=== PATIENT | female | born 2005 ===

== ENCOUNTER 2023-12-17 17:27 | Emergency (ER) | payer SELFPAY | END 2023-12-17 18:55 | disposition home or self-care (01) | LOC: DL.ED 17:27 | DX: S92.512A Displaced fracture of proximal phalanx of left lesser toe(s), initial encounter for closed fracture (principal); W20.8XXA Other cause of strike by thrown, projected or falling object, initial encounter | CPT/HCPCS: 73620-LT; 73660-T3; 99282; 99283 ==

== ENCOUNTER 2024-05-09 12:52 | Emergency (ER) | payer MEDICAID ==
[2024-05-09] MEDS: Acetaminophen 325 MG Tab PO ONE (14:12)
[2024-05-09] MEDS: Lidocaine 1% 5 ML VIAL INJECT ONE (14:12)
[2024-05-09] MEDS: Diphtheria,Pertussis(Acell),Tetanus Vaccine 0.5 ML Syringe IM ONE (14:12)
== END 2024-05-09 14:55 | disposition home or self-care (01) ==
LOC: DL.ED 12:52
DX: S61.214A Laceration without foreign body of right ring finger without damage to nail, initial encounter (principal); Z23 Encounter for immunization; W23.1XXA Caught, crushed, jammed, or pinched between stationary objects, initial encounter
CPT/HCPCS: 12002; 73140-RT; 90471; 90715; 99283-25; A9270-GY; J3490